=== PATIENT | male | born 1980 | race Two or more races ===

== ENCOUNTER 2024-03-21 06:22 | Day surgery (SDC) | payer MEDICAID ==
[~2024-03-21] VITALS: Ht 172.7 cm; Wt 74.8 kg
[2024-03-21] MEDS ORDERED: METOCLOPRAMIDE HCL 5MG/ml INJ 2ml VIAL IV ONE (07:00)
[2024-03-21] MEDS ORDERED: MORPHINE SULFATE INJ 2 MG/ml SYRG IV PRN (07:00)
[2024-03-21] MEDS ORDERED: HYDROmorphone HCL 2 MG/ML VL/or syr IV PRN ×2 (07:00)
[2024-03-21] MEDS ORDERED: fentaNYL CITRATE 100 MCG/2 ML VL IV PRN (07:00)
[2024-03-21] MEDS ORDERED: KETOROLAC TROMETH 30 MG/ML 1ML VIAL IV ONE (07:00)
[2024-03-21] MEDS ORDERED: ROCURONIUM 10MG/ML 10ML VIAL IV ONE (07:14)
[2024-03-21] MEDS ORDERED: KETAMINE 50mg/ML 10ml Vial 10 ML ONE (07:14)
[2024-03-21] MEDS ORDERED: LIDOCAINE HCL 2% TOP JELLY 5ML TOP ONE (07:14)
[2024-03-21] MEDS ORDERED: SODIUM CHLORIDE LOCK 10 ML ONE (07:14)
[2024-03-21] MEDS ORDERED: ONDANSETRON HCL 4 MG/2 ML VIAL ONE (07:14)
[2024-03-21] MEDS ORDERED: LIDOCAINE 1% INJ PF 5ML AMP ONE (07:14)
[2024-03-21] MEDS ORDERED: PROPOFOL 10 MG/ML 20 ML IV ONE (07:14)
[2024-03-21] MEDS ORDERED: MIDAZOLAM HCL 2MG/2ML 2ml VIAL (1mg/ml) ONE (07:14)
[2024-03-21] MEDS ORDERED: fentaNYL CITRATE 100 MCG/2 ML VL ONE (07:14)
[2024-03-21] MEDS ORDERED: DexAMETHasone SOD PHOS 10MG/1ML VIAL INJ ONE (07:14)
[2024-03-21] MEDS ORDERED: HYDROmorphone HCL 2 MG/ML VL/or syr ONE (07:14)
[2024-03-21] MEDS: ceFAZolin 2 GM/D5W100ml 100 ML IV ONE (07:30)
[2024-03-21] MEDS: BUPIVACAINE 0.25% INJ 50ML VIAL ONE (07:55)
[2024-03-21 08:16] VITALS: TEMP 97.6
[2024-03-21 09:20] VITALS: BP 122/82; PULSE 62; RESP 14; O2SAT 98
--- NOTE | 2024-03-22 00:23 | DVHOP ---
DATE OF SURGERY: 03/21/2024 PREOPERATIVE DIAGNOSES: Left knee medial meniscus tear, left knee articular cartilage deficit. POSTOPERATIVE DIAGNOSES: Left knee medial meniscus tear, left knee articular cartilage deficit. PROCEDURES: Left knee arthroscopic medial meniscus repair, left knee arthroscopic microfracture lateral femoral condyle, left knee arthroscopic aggressive synovectomy and debridement limited, left knee arthroscopic partial lateral meniscectomy. SURGEON: Clarence Dean MD. ANESTHESIA: General. COMPLICATIONS: None. CONDITION: Stable to PACU. ASSESSMENT AND PLAN: The patient will be weightbearing as tolerated in extension only, nonweightbearing from 0 to 90 degrees. PT, OT out of bed daily. Follow up in 2 weeks' time. SURGICAL INDICATIONS: The patient is a 43-year-old male who has ongoing locking, catching and buckling in the left knee. He understands the risks and benefits of surgical and nonsurgical treatment of left lower extremity. The patient opts for surgical treatment of the left lower extremity. DESCRIPTION OF PROCEDURE: The patient was seen in the preoperative holding, the left lower extremity was marked. The patient was brought to the operative suite. General anesthesia was then induced. Timeout was performed according to the hospital protocol. The left lower extremity was prepped and draped in a standard fashion. Ancef was given for infection prophylaxis. TXA was given for bleeding prophylaxis. The left lower extremity was prepped and draped in a standard fashion. Once that was then done, the patient's anteromedial and anterolateral portals were then visualized. The patellofemoral joint was then visualized. There were no loose bodies. There were no loose bodies in the medial and lateral gutters. The patellofemoral joint had grade 1 softening on the weightbearing portion of the trochlea down to the weightbearing portion. The medial femoral condyle had grade 3 cartilage lesion in approximately 90 degrees of flexion. The patient had a posterior horn horizontal cleavage tear of the medial meniscus, which was grasped and then fixed with 2 jugular stitch all-inside medial meniscus suture devices for stabilization of the medial meniscus. The medial meniscus was stable to probing. The ACL, PCL were grossly intact. Lateral compartment had some crystalloids noted from the corticosteroid injection and a mid body tear of the lateral meniscus where partial lateral meniscectomy was then completed with a small radial body tear involving approximately 5% of the lateral meniscus. Once that was then completed, attention was then turned to the lateral femoral condyle, lateral tibial plateau cartilage grossly intact. Intercondylar notch had microfracture microfracture apex with mesenchymal bleeding to help with the medial meniscus repair and then closed with a 2-0 Monocryl. A 0.25 Naropin was injected into the portal sites. The patient will be weightbearing as tolerated in extension only for 6 weeks' time. The patient will go nonweightbearing from 0 to 90 degrees for 6 weeks' time. After 6 weeks, the patient will do full range of motion. The patient will do physical therapy at the 2-week jeremi. The patient is going to be 2-week telehealth visit based on the Monocryl sutures. PT, OT out of bed daily. Follow up in 2 weeks' time. MD ALEJANDRA Sanon/TAINA/JOSE/NORMAN TID: [id number] RECEIPT: [id number]
== END 2024-03-21 09:42 | disposition home or self-care (01) ==
LOC: SUR 06:22
PROVIDERS: ATTEND Orthopaedic Surgery
DX: S83.242A Other tear of medial meniscus, current injury, left knee, initial encounter (principal); S83.282A Other tear of lateral meniscus, current injury, left knee, initial encounter; M23.92 Unspecified internal derangement of left knee; M25.862 Other specified joint disorders, left knee; Z87.891 Personal history of nicotine dependence; X58.XXXA Exposure to other specified factors, initial encounter; Y93.89 Activity, other specified; Y92.89 Other specified places as the place of occurrence of the external cause; Y99.8 Other external cause status
CPT/HCPCS: 29881; 29882; C1713; J1100; J1171; J2250; J2405; J2704; J3010; J3490